=== PATIENT | female | born 2000 | race Caucasian/White ===

== ENCOUNTER 2023-10-15 02:47 | Emergency (ER) | payer SELFPAY ==
[2023-10-15] MEDS ORDERED: Ondansetron PF 4 MG/2 ML Vial ONE (02:58)
== END 2023-10-15 04:52 | disposition home or self-care (01) ==
LOC: CSHERS 02:47
DX: F10.129 Alcohol abuse with intoxication, unspecified (principal); R11.2 Nausea with vomiting, unspecified
CPT/HCPCS: 96361; 96374; J2405